=== PATIENT | female | born 1990 | race American Indian/Alaskan Native ===

== ENCOUNTER 2016-09-29 10:20 | Emergency (ER) | payer MEDICAID ==
[2016-09-29 11:18] VITALS: BP 104/62
[2016-09-29 12:00] LABS: Basophils % (Auto) 0.4 % (0.0-1.8); Eosinophils % (Auto) 3.5 % (0.0-4.3); Hematocrit 35.2 % (30.3-42.9); Mean Corpuscular HGB Conc 31 % (30-34); Mean Corpuscular Volume 79 fl (79-97); Platelet Count 243 K/mm3 (140-440); Red Blood Count 4.44 M/mm3 (3.65-5.03); Red Cell Distribution Width 15.6 % (13.2-15.2); White Blood Count 4.6 K/mm3 (4.5-11.0)
[2016-09-29 12:03] LABS: Mean Corpuscular Hemoglobin 25 pg (28-32)
[2016-09-29 12:11] LABS: Anion Gap 16 mmol/L; BUN/Creatinine Ratio 11.66; Blood Urea Nitrogen 7 mg/dL (7-17); Calcium 8.9 mg/dL (8.4-10.2); Carbon Dioxide 22 mmol/L (22-30); Chloride 102.3 mmol/L (98-107); Glucose 114 mg/dL (65-100); Potassium 3.7 mmol/L (3.6-5.0); Sodium 137 mmol/L (137-145)
[2016-09-29 12:32] LABS: Bacteria,Urine 1+ /HPF (Negative); Bilirubin,Urine NEG (Negative); Blood,Urine NEG (Negative); Ketones,Urine NEG (Negative); Leukocyte Esterase,Urine LG (Negative); Mucus,Urine 3+ /HPF; Nitrite,Urine NEG (Negative); Urobilinogen,Urine < 2.0 mg/dL (<2.0)
--- NOTE | 2016-09-29 18:06 | Ultrasound Report ---
FINAL REPORT PROCEDURE: US OB TRANSVAGINAL TECHNIQUE: Real-time transvaginal sonography of the uterus, placenta, amniotic fluid, adnexa, and fetus was performed with image documentation. Measurements were obtained to determine age/size. M-mode Doppler was used to document heartbeat. CPT 13279 HISTORY: pelvic pain, COMPARISON: No prior studies are available for comparison. FINDINGS: Report for this exam was generated while reviewing images from both the transabdominal and transvaginal pelvic ultrasound both of which were performed today. The endometrial stripe shows heterogeneous irregular thickening measuring up to 2.2 centimeters. No evidence of intrauterine . Moderate nonspecific fluid is seen in the cul-de-sac. The uterus measures 8.2 x 6.4 x 6.6 centimeters. No masses are identified. The left ovary is unremarkable measuring 4.5 x 2.0 x 3.1 centimeter. The right ovary measures 4.0 x 2.7 x 3.2 centimeter and contains a 2.2 centimeter nearly isoechoic nodule. This may represent a hemorrhagic cyst. With color Doppler imaging I do not see significant increased flow. IMPRESSION: There is no evidence of intrauterine . Nodular density seen right ovary as described suggesting hemorrhagic cyst. Ectopic cannot be entirely excluded. Recommend correlation with serial beta HCG levels and follow-up pelvic ultrasound if clinically indicated. The endometrial stripe shows heterogeneous irregular thickening although no evidence of . Follow-up exam 6-8 weeks is recommended to ensure the endometrium returns to normal. Moderate nonspecific fluid is seen in the endometrial canal. Left ovary is unremarkable.
--- NOTE | 2016-09-29 18:10 | Ultrasound Report ---
FINAL REPORT PROCEDURE: US OB \T\lt; = 14 WEEKS FETUS TECHNIQUE: Real-time transabdominal sonography of the uterus, placenta, amniotic fluid, adnexa, and fetus was performed with image documentation. Measurements were obtained to determine age/size. M-mode Doppler was used to document heartbeat. CPT 86963 HISTORY: pelvic pain, COMPARISON: Prior transvaginal OB ultrasound also performed today. FINDINGS: Report for this exam was generated while reviewing images from both the transabdominal and transvaginal pelvic ultrasound both of which were performed today. The endometrial stripe shows heterogeneous irregular thickening measuring up to 2.2 centimeters. No evidence of intrauterine . Moderate nonspecific fluid is seen in the cul-de-sac. The uterus measures 8.2 x 6.4 x 6.6 centimeters. No masses are identified. The left ovary is unremarkable measuring 4.5 x 2.0 x 3.1 centimeter. The right ovary measures 4.0 x 2.7 x 3.2 centimeter and contains a 2.2 centimeter nearly isoechoic nodule. This may represent a hemorrhagic cyst. With color Doppler imaging I do not see significant increased flow. IMPRESSION: There is no evidence of intrauterine . Nodular density seen right ovary as described suggesting hemorrhagic cyst. Ectopic cannot be entirely excluded. Recommend correlation with serial beta HCG levels and follow-up pelvic ultrasound if clinically indicated. The endometrial stripe shows heterogeneous irregular thickening although no evidence of . Follow-up exam 6-8 weeks is recommended to ensure the endometrium returns to normal. Moderate nonspecific fluid is seen in the endometrial canal. Left ovary is unremarkable.
--- NOTE | 2016-10-04 01:20 | ED Elopement Review ---
ED Pt Elopement review - Results review Lab results: Laboratory Tests 09/29/16 09/29/16 09/29/16 11:39 11:39 15:25 WBC 4.6 RBC 4.44 Hgb 11.0 Hct 35.2 MCV 79 MCH 25 L MCHC 31 RDW 15.6 H Plt Count 243 Lymph % (Auto) 38.7 H [place] % (Auto) 8.0 H Eos % (Auto) 3.5 Baso % (Auto) 0.4 Lymph # 1.8 [place] # 0.4 Eos # 0.2 Baso # 0.0 Seg Neutrophils % 49.4 Seg Neutrophils # 2.3 Sodium 137 Potassium 3.7 Chloride 102.3 Carbon Dioxide 22 Anion Gap 16 BUN 7 Creatinine 0.6 L Estimated GFR > 60 BUN/Creatinine Ratio 11.66 Glucose 114 H Calcium 8.9 HCG, Quant 4461 H Urine Color Urine Turbidity Urine pH Ur Specific [place] Urine Protein Urine Glucose (UA) Urine Ketones Urine Blood Urine Nitrite Urine Bilirubin Urine Urobilinogen Ur Leukocyte Esterase Urine WBC (Auto) Urine RBC (Auto) U Epithel Cells (Auto) Urine Bacteria (Auto) Urine Mucus Urine HCG, Qual Blood Type Ord Rhogam Gestat Weeks 09/29/16 09/29/16 15:25 Unknown WBC RBC Hgb Hct MCV MCH MCHC RDW Plt Count Lymph % (Auto) [place] % (Auto) Eos % (Auto) Baso % (Auto) Lymph # [place] # Eos # Baso # Seg Neutrophils % Seg Neutrophils # Sodium Potassium Chloride Carbon Dioxide Anion Gap BUN Creatinine Estimated GFR BUN/Creatinine Ratio Glucose Calcium HCG, Quant Urine Color Yellow Urine Turbidity Slightly-cloudy Urine pH 5.0 Ur Specific [place] 1.023 Urine Protein 30 mg/dl Urine Glucose (UA) Neg Urine Ketones Neg Urine Blood Neg Urine Nitrite Neg Urine Bilirubin Neg Urine Urobilinogen < 2.0 Ur Leukocyte Esterase Lg Urine WBC (Auto) 17.0 H Urine RBC (Auto) 3.0 U Epithel Cells (Auto) 14.0 H Urine Bacteria (Auto) 1+ Urine Mucus 3+ Urine HCG, Qual Positive A Blood Type AB POSITIVE Ord Rhogam Gestat Weeks pos - Call Back decision Pt Call Back Decision: Call pt to return to ED [facility] (+ us on 09/29, no IUP but elevated HCG. Pt needs repeat evaluation. May return to ed if active pain or go to remote advisor. Need to r/o ectopic. Need repeat HCG)
== END 2016-09-29 18:30 | disposition left against medical advice (07) ==
LOC: ED 10:20
DX: R10.9 Unspecified abdominal pain (principal); Z53.21 Procedure and treatment not carried out due to patient leaving prior to being seen by health care provider
CPT/HCPCS: 36415; 76801; 76817; 80048; 81001; 81025; 84702; 85025; 86900; 86901

== ENCOUNTER 2017-10-15 15:01 | Emergency (ER) | payer MEDICAID ==
[2017-10-15 15:07] VITALS: BP 130/79
--- NOTE | 2017-10-15 17:19 | Emergency Department Report ---
ED ENT HPI - General Chief complaint: Dental/Oral Stated complaint: SWOLLEN JAW Time Seen by Provider: 10/15/17 17:19 Source: patient Mode of arrival: Ambulatory Limitations: No Limitations - History of Present Illness Initial comments: This is a 26-year-old female nontoxic, well nourished in appearance, no acute signs of distress presents to the ED with c/o of left upper toothache 1 month. Patient denies following up with a dentist. Patient stated that she wake up this morning with left upper mandible swelling. Patient otherwise denies any head trauma. Patient describes toothache as aching level of 8 out of 10. Patient denies any numbness, tingling, fever, chills, headache, stiff neck, abdominal pain, chest pain, shortness of breath. Patient denies any drug allergies or significant past medical history. Patient denies any allergies or PMH. MD complaint: tooth pain -: month(s) (1) 1 - pain 2 - pain Severity: mild Severity scale (0 -10): 8 Quality: aching Consistency: constant Improves with: none Worsens with: none Context- Dental: poor dental care Associated Symptoms: gum swelling, toothache. denies: fever, cough, pain with swallowing, sore throat, tinnitus, hearing loss, discharge from ear, rhinorrhea - Related Data Previous Rx's Medication Instructions Recorded Last Taken Type Chlorhexidine Mouthwash [Peridex] 15 ml MM BID #1 bottle 10/15/17 Unknown Rx Clindamycin [Clindamycin CAP] 300 mg PO Q8H 7 Days cap 10/15/17 Unknown Rx Ibuprofen [Motrin] 600 mg PO Q8H PRN #30 tablet 10/15/17 Unknown Rx Prednisone [predniSONE 10 mg 10 mg PO .TAPER #1 tab.ds.pk 10/15/17 Unknown Rx (6-Day Pack, 21 Tabs)] Allergies Allergy/AdvReac Type Severity Reaction Status Date / Time No Known Allergies Allergy Unverified 03/22/16 22:22 ED Dental HPI - General Chief complaint: Dental/Oral Stated complaint: SWOLLEN JAW Time Seen by Provider: 10/15/17 17:19 Source: patient Mode of arrival: Ambulatory Limitations: No Limitations - Related Data Previous Rx's Medication Instructions Recorded Last Taken Type Chlorhexidine Mouthwash [Peridex] 15 ml MM BID #1 bottle 10/15/17 Unknown Rx Clindamycin [Clindamycin CAP] 300 mg PO Q8H 7 Days cap 10/15/17 Unknown Rx Ibuprofen [Motrin] 600 mg PO Q8H PRN #30 tablet 10/15/17 Unknown Rx Prednisone [predniSONE 10 mg 10 mg PO .TAPER #1 tab.ds.pk 10/15/17 Unknown Rx (6-Day Pack, 21 Tabs)] Allergies Allergy/AdvReac Type Severity Reaction Status Date / Time No Known Allergies Allergy Unverified 03/22/16 22:22 ED Review of Systems ROS: Stated complaint: SWOLLEN JAW Other details as noted in HPI Constitutional: denies: chills, fever Eyes: denies: eye pain, eye discharge, vision change ENT: dental pain. denies: ear pain, throat pain Respiratory: denies: cough, shortness of breath, wheezing Cardiovascular: denies: chest pain, palpitations Endocrine: no symptoms reported Gastrointestinal: denies: abdominal pain, nausea, diarrhea Genitourinary: denies: urgency, dysuria, discharge Musculoskeletal: denies: back pain, joint swelling, arthralgia Skin: denies: rash, lesions Neurological: denies: headache, weakness, paresthesias Psychiatric: denies: anxiety, depression Hematological/Lymphatic: denies: easy bleeding, easy bruising ED Past Medical Hx - Past Medical History Previous Medical History?: Yes Hx Hypertension: No Hx Diabetes: No Hx Deep Vein Thrombosis: No Hx Renal Disease: No Hx Sickle Cell Disease: No Hx Seizures: No Hx Asthma: No Hx HIV: No - Surgical History Past Surgical History?: Yes Additional Surgical History: 06/28/16 had - Social History Smoking Status: Never Smoker Substance Use Type: Non Opiate Pain - Medications Home Medications: Home Medications Medication Instructions Recorded Confirmed Last Taken Type Chlorhexidine Mouthwash [Peridex] 15 ml MM BID #1 bottle 10/15/17 Unknown Rx Clindamycin [Clindamycin CAP] 300 mg PO Q8H 7 Days cap 10/15/17 Unknown Rx Ibuprofen [Motrin] 600 mg PO Q8H PRN #30 tablet 10/15/17 Unknown Rx Prednisone [predniSONE 10 mg 10 mg PO .TAPER #1 tab.ds.pk 10/15/17 Unknown Rx (6-Day Pack, 21 Tabs)] ED Physical Exam - General Limitations: No Limitations General appearance: alert, in no apparent distress - Head Head exam: Present: atraumatic, normocephalic - Eye Eye exam: Present: normal appearance Pupils: Present: normal accommodation - ENT ENT exam: Present: normal exam, mucous membranes moist, TM's normal bilaterally , normal external ear exam - Expanded ENT Exam Expanded Mouth exam: Present: normal external inspection, tongue normal. Absent: drooling, trismus, muffled voice, tongue elevation, laceration Teeth exam: Present: dental tenderness #, gingival enlargement, other (Slight facial swelling to left upper mandible region. No induration or flutance noted. Tender to touch. ) 1 - Dental Tenderness Throat exam: Positive: normal inspection, other (Uvula midline. No abscess or swelling noted.). Negative: tonsillar erythema, tonsillomegaly, tonsillar exudate, R peritonsillar mass, L peritonsillar mass - Neck Neck exam: Present: normal inspection, full ROM. Absent: tenderness, meningismus, lymphadenopathy - Respiratory Respiratory exam: Present: normal lung sounds bilaterally. Absent: respiratory distress, wheezes, rales, rhonchi, stridor - Cardiovascular Cardiovascular Exam: Present: regular rate, normal rhythm, normal heart sounds. Absent: bradycardia, tachycardia, irregular rhythm, systolic murmur, diastolic murmur, rubs, gallop - GI/Abdominal GI/Abdominal exam: Present: soft, normal bowel sounds - Extremities Exam Extremities exam: Present: normal inspection, full ROM, normal capillary refill - Back Exam Back exam: Present: normal inspection, full ROM - Neurological Exam Neurological exam: Present: alert, oriented X3, normal gait - Psychiatric Psychiatric exam: Present: normal affect, normal mood - Skin Skin exam: Present: warm, dry, intact, normal color. Absent: rash ED Course Vital Signs 10/15/17 15:03 Temperature 98.7 F Pulse Rate 74 Respiratory 18 Rate Blood Pressure 130/79 O2 Sat by Pulse 100 Oximetry - Reevaluation(s) Reevaluation #1: 10/15/17 18:44 Patient is speaking in full sentences with no signs of distress noted. ED Medical Decision Making - Medical Decision Making Patient is stable and was examined by me. Slight facial swelling but no induration or flutance noted. Tenderness to touch. PAtient received 600 mg Clinda IM in the ED and Decadron. Patient was instructed to follow up with dentist in 24 hours or if it became worse to come to the ED. Patient was educated on symptoms of abscess and to return if present. Patient is dishcarged with clindamycin, prednisone, motrin, and peridex. At time of discharge, the patient does not seem toxic or ill in appearance. No acute signs of distress noted. Patient agrees to discharge treatment plan of care. No further questions noted by the patient. Critical care attestation.: If time is entered above; I have spent that time in minutes in the direct care of this critically ill patient, excluding procedure time. ED Disposition Clinical Impression: Toothache, Gingivitis Disposition: [id number] TO HOME OR SELFCARE Is pt being admited?: No Does the pt Need Aspirin: No Condition: Stable Instructions: Toothache (ED), Gingivitis (ED) Additional Instructions: Follow-up with a dentist for 24 hours or if symptoms worsen and continue return to emergency room as soon as possible. Prescriptions: Chlorhexidine Mouthwash [Peridex] 15 ml MM BID #1 bottle Clindamycin [Clindamycin CAP] 300 mg PO Q8H 7 Days cap Ibuprofen [Motrin] 600 mg PO Q8H PRN #30 tablet PRN Reason: Pain Prednisone [predniSONE 10 mg (6-Day Pack, 21 Tabs)] 10 mg PO .TAPER #1 tab.ds.pk Referrals: PRIMARY CARE, [Primary Care Provider] - 3-5 Days CHAPARRITA BLANC MD [Staff Physician] - 3-5 Days [facility] [Outside] - 24 Hours Forms: Work/School Release Form(ED)
[2017-10-15] MEDS ORDERED: CLEOCIN IM ONE (18:36)
[2017-10-15] MEDS ORDERED: DECADRON IM ONE (18:37)
== END 2017-10-15 18:55 | disposition home or self-care (01) ==
LOC: ED 15:01
DX: K05.10 Chronic gingivitis, plaque induced (principal)
CPT/HCPCS: 96372; 99282; J1100